=== PATIENT | female | born 1975 | race Caucasian/White ===

== ENCOUNTER 2023-03-05 18:05 | Emergency (ER) | payer OTHER, SELFPAY ==
[2023-03-05 18:17] VITALS: BP 148/82; PULSE 79; RESP 16; TEMP 36.6; O2SAT 100; BMI 26.7
--- NOTE | 2023-03-05 19:37 | ED_ITS ---
HPI - Ear Problem General Chief complaint: Ear Stated complaint: FOREIGN IN EAR Time Seen by Provider: 03/05/23 19:35 Source: patient Mode of arrival: walk-in History of Present Illness HPI Narrative: sensation of FB of insect right ear for past 3 days. States her looked in there and saw something black. no fever or dizziness. Normal hearing MD Complaint: Reports ear pain Location: right ear Related Data Allergies Allergy/AdvReac Type Severity Reaction Status Date / Time azithromycin Allergy Unknown Verified 03/05/23 18:22 Penicillins Allergy Unknown Verified 03/05/23 18:22 Tetanus Vaccines and Toxoid Allergy Unknown Verified 03/05/23 18:22 Review of Systems 2 ROS Status of ROS 10 or more systems reviewed and unremarkable except as noted in history and below Exam Constitutional Vital Signs, click to edit/add: Last Vital Signs Temp 98 F 03/05/23 18:17 Pulse 79 03/05/23 18:17 Resp 16 03/05/23 18:17 BP 148/82 H 03/05/23 18:17 Pulse Ox 100 03/05/23 18:17 O2 Del Method Room Air 03/05/23 18:17 Common normals: no apparent distress, average body habitus, oriented x3, no limitations and healthy appearing HENMN Common normals: normocephalic and head/scalp atraumatic Other: right ear canal clear. No FB. TM normal Eye Common normals: EOMs intact bilaterally and conjunctivae normal Respiratory Common normals: normal respiratory effort, no retractions, no use of accessory muscles and clear to auscultation bilaterally Cardio Common normals: regular rate and regular rhythm Extremity Common normals: normal to inspection, full ROM and normal capillary refill Neuro Common normals: oriented x3, CN's II-XII intact bilaterally, moves all extremities and no focal motor deficits Psych Appearance: grossly normal Course Vital Signs Vital signs: Vital Signs Temperature 98 F 03/05/23 18:17 Pulse Rate 79 03/05/23 18:17 Respiratory Rate 16 03/05/23 18:17 Blood Pressure 148/82 H 03/05/23 18:17 Pulse Oximetry 100 03/05/23 18:17 Oxygen Delivery Method Room Air 03/05/23 18:17 Temperature 98 F 03/05/23 18:17 Pulse Rate 79 03/05/23 18:17 Respiratory Rate 16 03/05/23 18:17 Blood Pressure 148/82 H 03/05/23 18:17 Pulse Oximetry 100 03/05/23 18:17 Oxygen Delivery Method Room Air 03/05/23 18:17 Medical Decision Making MDM Narrative Medical decision making narrative: patient presents complaining of sensation of insect or FB right ear for past 3 days. Exam of the ear is normal and she does not have TMJ tenderness or pain with tugging on the ear. Patient informed of lack of findings and is advised to follow up with her doctor Discharge Plan Discharge Chief Complaint: Ear Clinical Impression: Ear pain, right Patient Disposition: Home, Self-Care Instructions: Earache (ED) Additional Instructions: follow up with your family doctor next week for recheck Stand Alone Forms: Portal Instructions Referrals: JUDSON NEAL [Primary Care Provider] - 1 week
== END 2023-03-05 20:00 | disposition home or self-care (01) ==
PROVIDERS: Emergency Provider Internal Medicine; PCP Family Medicine
DX: H92.01 Otalgia, right ear (principal)
CPT/HCPCS: 99281